=== PATIENT | male | born 1955 | race Caucasian/White ===

== ENCOUNTER 2016-09-09 07:43 | Inpatient (IN) ==
[2016-09-09] MEDS ORDERED: CeFAZolin Pre 2,000 MG/100 ML 2,000 MG/100 ML BAG IVPB ONE (08:04)
[2016-09-09] MEDS ORDERED: Lidocaine -MPF 1% 2 ML VIAL ID ONE (08:04)
[2016-09-09] MEDS ORDERED: Albuterol 2.5 MG/3 ML NEBULIZER IH ONE (08:05)
[2016-09-09] MEDS ORDERED: *HR* Midazolam HCl 2 MG/2 ML VIAL ONE (08:13)
[2016-09-09] MEDS ORDERED: *HR* FentaNYL (PF) 100 MCG/2 ML VIAL ONE (08:13)
[2016-09-09] MEDS ORDERED: *HR* Propofol 200 MG/20 ML VIAL IVP ONE (08:13)
[2016-09-09] MEDS ORDERED: Ondansetron 4 MG/2 ML VIAL ONE (08:14)
[2016-09-09] MEDS ORDERED: Dexamethasone 4 MG/ML VIAL ONE (08:14)
[2016-09-09] MEDS ORDERED: *HR* Rocuronium Bromide 50 MG/5 ML VIAL ONE (08:14)
[2016-09-09] MEDS ORDERED: Lidocaine -MPF 2% 2 ML VIAL ONE (08:14)
[2016-09-09] MEDS ORDERED: Ringers Solution, Lactated 1,000 ML IVC SCH (08:15)
--- NOTE | 2016-09-09 08:17 | Anesthesia Evaluation PreOp ---
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 HX Other Medical History: Renal (Left renal mass) Anesthesia History: No Prior Anesthetic Complications Medications and Allergies Albuterol Sulfate [Albuterol Inhaler] 2 puff IH QID PRN 06/13/16 [History] Aspirin Enteric Coated [Aspirin EC] 81 mg PO DAILY 06/13/16 [History] Baclofen 10 mg PO BID PRN 06/13/16 [History] Cholecalciferol (Vitamin D3) [Vitamin D] 1,000 unit PO DAILY 06/13/16 [History] Lisinopril-HCTZ 10-12.5 [Prinzide 10-12.5] 1 each PO DAILY 06/13/16 [History] Potassium Gluconate [Potassium] 600 mg PO DAILY 06/13/16 [History] Tramadol HCl [Ultram] 100 mg PO TID PRN 06/13/16 [History] Allergies acetaminophen [From Vicodin] Adverse Reaction (Verified 06/13/16 18:34) Nausea hydrocodone [From Vicodin] Adverse Reaction (Verified 06/13/16 18:34) Nausea - Meds/Allergy Pre-op Review Medications Reviewed: Yes Allergies Reviewed: Yes Beta Blockers on Current Med List: No Anesthesia Results - Labs Laboratory Tests 09/01/16 09/01/16 08:32 08:32 WBC 6.6 Hgb 13.7 Hct 41.1 Plt Count 172 Sodium 137 Potassium 3.6 Chloride 102 Carbon Dioxide 26 BUN 20 Creatinine 1.05 Est GFR ( Amer) > 60 Est GFR (Non-Af Amer) > 60 BUN/Creatinine Ratio 19 - Imaging EKG: report reviewed, image reviewed (SR; RV; nonspecific T wave abnormality) Anesthesia Exam Last Vital Signs Temp 97.9 F 09/09/16 08:00 Pulse 58 09/09/16 08:00 Resp 18 09/09/16 08:00 BP 114/73 09/09/16 08:00 Pulse Ox 100 09/09/16 08:00 Weight: 70 kg NPO (# of Hours): >> 8 hrs - HEENT Pupil (Motor): Pupils equal, EOMI Mallampati: III Teeth: Edentulous Oral Opening: Greater than 3 - 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
--- NOTE | 2016-09-09 08:37 | History & Physical Report ---
Date of Encounter: 09/09/16 Time of Encounter: 08:36 24 Hour HP Update - Instructions Instructions: If the History and Physical is less than 30 days old and was completed prior to A.M. admission and or procedure and has NOT been updated on calendar day of procedure please complete this update prior to performing procedure. - Update Patient reports changes in Medical Condition: No Changes in examination, assessment, or condition: No Changes in Medication: No Preop tests/diagnostics Reviewed: Yes Surgery Remains Indicated: Yes Consent for Planned Operative Procedure(s) Verified: Yes - Pre-Operative Checklist Preoperative Checklist Indicated: Yes Prophylactic Antibiotic Ordered: Yes Home Medications Include Beta Gypsy: No Beta Gypsy Taken Today (Day of Surgery): No Beta Gypsy Taken Yesterday (Day Prior to Surgery): No Is VTE Prophylaxis Indicated?: Yes
[2016-09-09] MEDS ORDERED: Dexamethasone 4 MG/ML VIAL IVP ONE (08:44)
[2016-09-09] MEDS ORDERED: Ondansetron 4 MG/2 ML VIAL IVP ONE (08:44)
[2016-09-09] MEDS ORDERED: *HR* Promethazine 25 MG/ML VIAL IVP PRN (08:44)
[2016-09-09] MEDS ORDERED: *HR* Labetalol 20 MG/4 ML SYRINGE IVP PRN (08:44)
[2016-09-09] MEDS ORDERED: *HR* Morphine 10 MG/ML VIAL ONE (09:52)
[2016-09-09] MEDS ORDERED: *HR* HYDROmorphone 2 MG/ML SYRINGE ONE (10:35)
[2016-09-09] MEDS ORDERED: Neostigmine Methylsulfate 3 MG/3 ML SYRINGE ONE (10:47)
--- NOTE | 2016-09-09 11:25 | Operative Note ---
Date of procedure: 09/09/16 Pre-op diagnosis: Left renal mass Post-op diagnosis: same Procedure: Laparoscopic hand-assisted left radical nephrectomy Anesthesia: MARYJANE Surgeon: Taz Peña Estimated blood loss (cc): 20 Specimen: Left kidney Condition: stable Disposition: PACU Procedure in Detail: Patient was taken back to the operating room positioned supine on the operating table. Anesthesia was applied without complication. Chavez catheter was placed with return of clear urine. Patient was then moved into position which was a modified left lateral with the patient's left flank up approximately 45. Beanbag was positioned beneath the patient to aid in securing the patient's position. Left arm was brought over and secured with a pillow over the right arm. Patient was taped down and a leather strap used for security. Patient was prepped and draped sterile fashion timeout was performed from the proper patient and procedure. CT scan images were displaced in the room which confirmed a 3-4 cm posterior left renal mass. Started the procedure with a 15 blade scalpel to make a 7 cm incision to the left aspect of the umbilicus. Underlying tissue was dissected elect cautery Bovie. The fascia was encountered and incised with the Bovie. I then bluntly entered the peritoneal cavity and carefully dissected enough space to allow for the gelport. GelPort was placed without complication and a 12 mm trocar was placed through the port to provide pneumoperitoneum. I examined the abdomen with a 0 camera to confirm there were minimal adhesions. I then removed the port in place my hand through the GelPort. Under guidance of my hand I placed two 12 mm ports. The first was in the midline below the xiphoid process. The second was in the left lower quadrant. They were placed without complication. Using a Harmonic scalpel identified and dissected the white line of Toldt to reflect the left hemicolon. Dissection was carried out from the splenocolic juncture down to the sigmoid colon. I had excellent exposure of the retroperitoneum. Blunt dissection was carried out posterior and inferior to the kidney. I was able to eventually identify the gonadal vein which was clipped with large clips and ligated. The ureter was identified and transected using the Harmonic. This provided excellent access to the hilar area of the kidney. I was able to palpate the pulsatile renal artery. I gently dissected around the hilar area with my index finger to create a space for the endovascular stapler. I obtain the 45 mm articulating endovascular stapler and was able to gently place this around the hilar vessels. The hilar vessels were stapled and transected without significant bleeding. I used 2 additional vascular loads to carry out my dissection superior to this across the adrenal gland. The remaining attachments were dissected using the Harmonic until the kidney was completely free. I used the large Endo Catch bag and placed this through the hand port was able to maneuver the kidney into the Endo Catch bag. I was able to extract the kidney through the HandPort without enlarging the incision. I then re-administered pneumoperitoneum and carefully examine the hilum. Bilateral been removed from the abdomen at this point and there was no significant bleeding from the hilum or splenic area. The bowel appeared intact without injury. I then removed the GelPort closed the fascia with a #1 loop PDS. Davi's fascia was closed with a 2-0 Vicryl and the skin with 4-0 Monocryl and Dermabond. The to 12 mm port sites were closed with Vicryl and Monocryl and Dermabond. All counts were correct at the end the procedure. There were no major complications during the procedure. Blood loss was minimal at 20 mL
[2016-09-09] MEDS: *HR* HYDROmorphone (PF) 1 MG/ML SYRINGE IVP PRN ×6 (11:30→20:45)
[2016-09-09] MEDS ORDERED: *HR* HYDROmorphone (PF) 1 MG/ML SYRINGE ONE ×2 (11:32→12:07)
[2016-09-09] MEDS ORDERED: Ondansetron 4 MG/2 ML VIAL IVP PRN (12:04)
[2016-09-09] MEDS ORDERED: *HR* Morphine 2 MG/ML SYRINGE IVP PRN (12:04)
[2016-09-09] MEDS ORDERED: Baclofen 10 MG TABLET PO PRN (12:04)
[2016-09-09] MEDS ORDERED: Albuterol 2.5 MG/3 ML NEBULIZER IH PRN (12:04)
[2016-09-09] MEDS ORDERED: Naloxone 0.4 MG/ML INJ IVP PRN (12:04)
--- NOTE | 2016-09-09 12:43 | Anesthesia Evaluation Post Op ---
Date of Encounter: 09/09/16 Time of Encounter: 12:20 - Vital Signs Vital Signs: Last Vital Signs Temp 97.5 F L 09/09/16 12:18 Pulse 72 09/09/16 12:18 Resp 16 09/09/16 12:18 BP 142/80 09/09/16 12:08 Pulse Ox 98 09/09/16 12:18 - Lungs Lungs: Clear Ascult./Percussion - Airway Airway: Non-obstructed - Cardiovascular Regular Rate - Mental Status Mental Status: Alert & Oriented, Answers Appropriately - Pain Pain Scale: 4 - Nausea Vomiting Nausea Vomiting: Not Present - Hydration Hydration: NPO - Discharge PostOp Status: Transfer Patient to floor
[2016-09-09] MEDS: 0.9 % Sodium Chloride 1,000 ML IVC SCH (15:53)
[2016-09-09] MEDS: ceFAZolin 2,000 MG in D5% in Water 100 ML IVPB SCH (17:27)
[2016-09-10] MEDS: *HR* HYDROmorphone (PF) 1 MG/ML SYRINGE IVP PRN ×2 (00:58→05:32)
[2016-09-10] MEDS: ceFAZolin 2,000 MG in D5% in Water 100 ML IVPB SCH ×4 (01:00→23:37)
[2016-09-10] MEDS: 0.9 % Sodium Chloride 1,000 ML IVC SCH ×3 (01:21→17:50)
[2016-09-10 04:31] LABS: Hematocrit 34.8 % (37.5-50.1); Hemoglobin 11.2 g/dL (12.9-16.9); Immature Granulocytes % 0.4 % (0-4); Lymphocytes # 1.3 K/mcL (0.6-4.6); Lymphocytes % 13.3 %; Mean Corpuscular HGB Conc 32.2 g/dL (31.6-35.5); Mean Corpuscular Hemoglobin 30.9 pg (28.0-33.3); Mean Corpuscular Volume 95.9 fL (83.0-100.0); Monocytes # 0.8 K/mcL (0.0-1.3); Monocytes % 7.7 %; Neutrophils # 7.9 K/mcL (1.6-8.9); Platelet Count 132 K/mcL (140-400); Red Blood Count 3.63 M/mcL (4.19-5.50); Red Cell Distribution Width 13.2 % (11.5-14.5); Segmented Neutrophils % 78.6 %
[2016-09-10 04:43] LABS: BUN/Creatinine Ratio 12 (6-26); Blood Urea Nitrogen 15 mg/dL (8-26); Calcium 8.7 mg/dL (8.6-10.8); Carbon Dioxide 28 mEq/L (19-29); Chloride 102 mEq/L (98-109); Glucose 102 mg/dL (70-99); Osmolality,Calculated 283 (280-300); Potassium 4.2 mEq/L (3.5-4.5); Sodium 136 mEq/L (136-145); eGFR For African Americans > 60 (> 60); eGFR For Non-African Americans 57 (> 60)
[2016-09-10] MEDS ORDERED: *HR* OxyCODONE/APAP 5/325 TABLET PO PRN (07:11)
--- NOTE | 2016-09-10 07:14 | Urology Progress Note ---
Date of Encounter: 09/10/16 Time of Encounter: 07:13 - Assessment and Plan (1) Renal mass Current Visit: Yes Status: Resolved Assessment and plan: Patient looks great postop day #1. Labs are expected. Vital signs good. Plan to remove catheter. Increase ambulation. Advance diet. Start oral pain medication. Possible discharge later this afternoon Progress Note Subjective: no new complaints, pain is less Narrative: Ambulating without difficulty. No nausea Objective Initial Vital Signs Temp Pulse Resp BP Pulse Ox 97.9 F 58 18 114/73 100 09/09/16 08:00 09/09/16 08:00 09/09/16 08:00 09/09/16 08:00 09/09/16 08:00 - General physical appearance Present: well developed, no distress - Abdomen Present: soft - Additional Exam Urine clear - Labs 09/10/16 03:43 09/10/16 03:43 Diabetes panel 09/10/16 Range/Units 03:43 Sodium 136 (136-145) mEq/L Potassium 4.2 (3.5-4.5) mEq/L Chloride 102 (98-109) mEq/L Carbon Dioxide 28 (19-29) mEq/L BUN 15 (8-26) mg/dL Creatinine 1.29 H (0.72-1.25) mg/dL Glucose 102 H (70-99) mg/dL Calcium 8.7 (8.6-10.8) mg/dL Calcium panel 09/10/16 Range/Units 03:43 Calcium 8.7 (8.6-10.8) mg/dL Pituitary panel 09/10/16 Range/Units 03:43 Sodium 136 (136-145) mEq/L Potassium 4.2 (3.5-4.5) mEq/L Chloride 102 (98-109) mEq/L Carbon Dioxide 28 (19-29) mEq/L BUN 15 (8-26) mg/dL Creatinine 1.29 H (0.72-1.25) mg/dL Glucose 102 H (70-99) mg/dL Calcium 8.7 (8.6-10.8) mg/dL Adrenal panel 09/10/16 Range/Units 03:43 Sodium 136 (136-145) mEq/L Potassium 4.2 (3.5-4.5) mEq/L Chloride 102 (98-109) mEq/L Carbon Dioxide 28 (19-29) mEq/L BUN 15 (8-26) mg/dL Creatinine 1.29 H (0.72-1.25) mg/dL Glucose 102 H (70-99) mg/dL Calcium 8.7 (8.6-10.8) mg/dL Consult Discharge Plan - Plan Referrals: [facility] [Primary Care Provider] - Taz Peña MD [Partnered Physician] -
[2016-09-10] MEDS: *HR* Morphine 2 MG/ML SYRINGE IVP PRN ×8 (07:59→23:37)
[2016-09-11] MEDS: 0.9 % Sodium Chloride 1,000 ML IVC SCH (02:11)
[2016-09-11] MEDS: *HR* Morphine 2 MG/ML SYRINGE IVP PRN (02:21)
--- NOTE | 2016-09-11 07:02 | Discharge Summary ---
Date of Encounter: 09/11/16 Time of Encounter: 07:00 - Discharge Diagnosis (1) Renal mass Priority: Primary Status: Resolved - Discharge Medications Prescriptions: OxyCODONE/APAP 5/325 [Percocet 5/325 MG] 1 each PO Q4HR PRN #45 tab PRN Reason: Pain Home Medications: Aspirin Enteric Coated [Aspirin EC] 81 mg PO DAILY 06/13/16 [History] Baclofen 10 mg PO TID PRN 06/13/16 [History] Albuterol Neb [Proventil Neb] 2.5 mg IH Q4HR PRN 09/09/16 [History] Lisinopril [Zestril] 10 mg PO DAILY 09/09/16 [History] Potassium Chloride [Klor-Con Sprinkle] 10 meq PO BID 09/09/16 [History] Tramadol HCl [Ultram] 50 mg PO QID PRN 09/09/16 [History] OxyCODONE/APAP 5/325 [Percocet 5/325 MG] 1 each PO Q4HR PRN #45 tab 09/11/16 [Rx ] Allergies/Adverse Reactions: Allergies No Known Allergies Allergy (Verified 09/09/16 08:24) Date of admission: 09/09/16 09:14 Primary care physician: PCP [facility] Discharging clinician: Taz Peña Anticipated date of discharge: 09/11/16 - Patient Status Disposition: Home, Self-Care Condition: Good Functional capacity at discharge: independent ambulation Overall status at discharge: patient is progressing back to baseline - Discharge Instructions Follow Up With: [facility],PCP [Primary Care Provider] - Taz Peña MD [Partnered Physician] - (2 weeks) Additional Instructions: Okay to shower. Avoid baths or swimming. Avoid heavy lifting over 10 pounds, heavy activity, straining until at least follow-up appointment. No driving until off of pain medication completely. Take a stool softener if necessary to avoid constipation Some abdominal pain as expected for a number of weeks. Call if excessive abdominal pain, intractable nausea vomiting, fever or 101. Okay to leave incisions open to air. No need to place any lotion or antibiotic ointment - Diet and Activity Activity: other Diet: advance to your usual diet - Hospital Course Hospital course: Mr. Robles is a 61 year old male postoperative day #2 status post hand- assisted laparoscopic nephrectomy. No postoperative complications. Labs were okay yesterday. Vital signs remained stable. Mild hypertension. Able to transfer out of bed and ambulate. Tolerating a diet. Small flatus. No nausea. Pain controlled with Percocet - Time Spent with Patient Total time spent providing and/or coordinating discharge services: Less than 30 minutes Exam Initial Vital Signs Temp Pulse Resp BP Pulse Ox 97.9 F 58 18 114/73 100 09/09/16 08:00 09/09/16 08:00 09/09/16 08:00 09/09/16 08:00 09/09/16 08:00 - General physical appearance Present: well developed, no distress - Abdomen Abdomen: Present: soft - Additional Findings Incisions closed and intact - VTE Documentation of Mechanical Device: Graduated compression elastic hosiery
[2016-09-11 07:10] VITALS: BP 158/81
[2016-09-11] MEDS: ceFAZolin 2,000 MG in D5% in Water 100 ML IVPB SCH (07:43)
== END 2016-09-11 09:55 | disposition home or self-care (01) | DRG 658 ==
LOC: SAMDAY 07:43 → 3ANU 09:14
PROVIDERS: ADMIT Urology; ATTEND Urology